=== PATIENT | female | born 1940 | race African-American/Black ===

== ENCOUNTER → 2016-07-24 | Outpatient (CLI) | payer MEDICARE ==
[~2016-07-24] MED LIST: ACETAMINOPHEN PO; ADVAIR 2501 DISK W/D PO; ALBUTEROL MININEB NEB; ALBUTEROL17 GM INH; AMBIEN CR PO; AMBIEN12.5 MG PO; APRESOLINE PO; ASPIRIN; ASPIRIN PO; ASPIRIN81 M1 PO; ASPIRIN81 MG PO; BISACODYL10 MG/SUP3 PR; BUMEX PO; BUMEX1 MG PO; BUMEX2 MG PO; CARAFATE1 G PO; CARAFATE1 GM PO; COMBIVENT U/D3 ML INH; COUMADIN5 MG PO; DEPAKOTE; DEPAKOTE PO; GLUCOPHAGE XR500 MG; HYDRALAZINE HCL10 MG PO; HYDRALAZINE HCL25 MG PO; HYDRALAZINE HCL50 MG PO; IMDUR; IMDUR PO; IMDUR-ER30 M1 PO; IMDUR30 MG PO; ISORDIL PO; K-DUR20 ME1 PO; KCL PO; KLOR-CON PO; LANTUS SOLOSTAR3 ML SUBQ; LANTUS100 UNITS/ SUBQ; LASIX PO; LEVAQUIN750 MG PO; LIPITOR40 MG PO; LISINOPRIL; LISINOPRIL PO; LOVENOX SUBQ; METFORMIN PO; MILK OF MAGNESIA PO; NAMENDA XR28 MG PO; NICOTINE TRANSD14 MG TD; NITROGLYGERIN0.4 MG SL; NITROLINGUAL12 G1 TL; NORVASC; NORVASC PO; NORVASC10 MG PO; PLAVIX; PLAVIX PO; PREDNISONE PO; PROTONIX PO; REGLAN5 MG PO; SEROQUEL XR300 M1 PO; SEROQUEL300 M1 PO; STAVZOR500 MG PO; SYMBICORT INH; TEMAZEPAM; TEMAZEPAM PO; TOPROL XL; TOPROL XL 50 MG50 MG PO; TOPROL XL PO; TOPROL XL50 MG PO; TYLENOL325 M1 PO; VALPROIC ACID250 MG PO; ZOCOR; ZOCOR PO
--- NOTE | ~2016-07-24 | US37 ---
[facility] A Service of [facility] & [facility] RADIOLOGY TEXT RESULTS PATIENT: AMANDEEP ZAPATA LOCATION: CNIV : 42 UNIT #: [id number] AGE: [address]: Nga Liu MD SEX: F ORDER DR: [id number] [facility] [address] [place], [place] [address] [id number] O MR#: [id number] Acc #: [id number] NAME: AMANDEEP ZAPATA : 1940 SEX: F STUDY DATE/TIME: 07/24/2016 10:02 UNIT: CNIV ROOM: STUDY DESCRIPTION: US Carotid W/Doppler Bilateral Attending Physician: Nga Liu M.D. Referring Physician: Nga Liu M.D. Ordering Physician: Nga Liu M.D. Primary Care Physician: Inder Henao M.D. MEDICAL IMAGING REPORT This report is preliminary unless electronic signature is present EXAM Carotid duplex scan date of examination 07/24/2016 HISTORY Bilateral carotid stenosis. FINDINGS The right common carotid artery has heterogeneous dense plaque which extends up in the proximal internal and external carotid arteries. Peak systolic velocity in the proximal right internal carotid artery is 129 cm/sec with an end diastolic velocity of 20 cm/sec. The ICA/CCA ratio on the right is 1.45. Peak systolic velocity in the right external carotid artery is 238 cm/sec. The right vertebral artery is patent with antegrade flow. The left common carotid artery has heterogeneous dense plaque which extends up in the proximal internal and external carotid arteries. Peak systolic velocity in the proximal left internal carotid artery is 174 cm/sec with an end diastolic velocity of 33 cm/sec. The ICA/CCA ratio on the left is 2.28. Peak systolic velocity in the left external carotid artery is 433 cm/sec. The left vertebral artery is patent with antegrade flow. IMPRESSION Moderate stenosis (50-69%) in the internal carotid arteries bilaterally. Significant stenosis of the external carotid arteries on both sides. Patent vertebral arteries bilaterally with antegrade flow. Dictated by... Sanjeev Ray M.D. [facility] A Service of [facility] & [facility] RADIOLOGY TEXT RESULTS PATIENT: AMANDEEP ZAPATA LOCATION: CNIV : 42 UNIT #: [id number] AGE: [address]: Nga Liu MD SEX: F ORDER DR: THIS IS AN ELECTRONICALLY VERIFIED REPORT Sanjeev Ray M.D. at 07/25/2016 7:32 AM KALI/jayne TD: 07/24/2016 17:21 JOB #: [id number] MEDICAL IMAGING REPORT Page 1 of 1 COPY
== END | disposition home or self-care (01) ==
LOC: CNIV 09:39
DX: I65.23 Occlusion and stenosis of bilateral carotid arteries (principal); E78.00 Pure hypercholesterolemia, unspecified; I10 Essential (primary) hypertension
CPT/HCPCS: 93880